=== PATIENT | female | born 1940 | race Hispanic/Latino ===

== ENCOUNTER 2018-11-27 05:35 | Day surgery (SDC) | payer OTHER ==
[~2018-11-27] VITALS: Ht 157.5 cm; Wt 71.7 kg
[~2018-11-27 05:35] MED LIST: CLOP75TA32 PO; LOSA100T58 PO; METO50TA18 PO; PRAV40TA3 PO
[2018-11-27] MEDS ORDERED: SODIUM CHLORIDE 0.9% 1000ML 1,000 ML IV ONE (05:42)
[2018-11-27 06:30] VITALS: BP 173/72
[2018-11-27] MEDS ORDERED: PROPOFOL 10 MG/ML 20ML VIAL IV ONE (08:11)
[2018-11-27 08:33] VITALS: BP 109/47
[2018-11-27 08:38] VITALS: BP 111/47
[2018-11-27 08:43] VITALS: BP 123/55
[2018-11-27 08:48] VITALS: BP 123/51
== END 2018-11-27 09:05 | disposition home or self-care (01) ==
LOC: ENDO 05:35 → DAH 05:35 → ENDO 09:05
PROVIDERS: ATTEND Internal Medicine
DX: K29.50 Unspecified chronic gastritis without bleeding (principal); K57.30 Diverticulosis of large intestine without perforation or abscess without bleeding; B96.81 Helicobacter pylori [H. pylori] as the cause of diseases classified elsewhere; K64.0 First degree hemorrhoids; K22.8 Other specified diseases of esophagus; K31.89 Other diseases of stomach and duodenum; I10 Essential (primary) hypertension; E03.9 Hypothyroidism, unspecified; E78.5 Hyperlipidemia, unspecified; Z98.890 Other specified postprocedural states; Z90.89 Acquired absence of other organs; K62.5 Hemorrhage of anus and rectum; I25.10 Atherosclerotic heart disease of native coronary artery without angina pectoris; I25.2 Old myocardial infarction; E66.9 Obesity, unspecified; Z86.010 Personal history of colon polyps
CPT/HCPCS: 43239; 45378; 88305; A4606; J2704; J7030

== ENCOUNTER → 2019-06-04 | Outpatient (CLI) | payer OTHER ==
[~2019-06-04] VITALS: Ht 160 cm; Wt 71.2 kg
[~2019-06-04] MED LIST changes: +REGADENOSON 0.4 MG/5 ML PF SYG IVP SCH
== END | disposition home or self-care (01) ==
LOC: SHCH 09:00
PROVIDERS: ATTEND Internal Medicine Cardiovascular Disease
DX: R07.9 Chest pain, unspecified (principal)
CPT/HCPCS: 78452; 93017; 96374; A9500 ×2; J2785

== ENCOUNTER → 2019-06-11 | Outpatient (CLI) | payer OTHER ==
[~2019-06-11] MED LIST changes: -REGADENOSON 0.4 MG/5 ML PF SYG IVP SCH
== END | disposition home or self-care (01) ==
LOC: SHCH 11:08
PROVIDERS: ATTEND Internal Medicine Cardiovascular Disease
DX: R94.31 Abnormal electrocardiogram [ECG] [EKG] (principal)
CPT/HCPCS: 93306

== ENCOUNTER → 2019-06-21 | Outpatient (CLI) | payer OTHER | END | disposition home or self-care (01) | LOC: RAH 09:08 | PROVIDERS: ATTEND Internal Medicine | DX: M47.812 Spondylosis without myelopathy or radiculopathy, cervical region (principal); M85.88 Other specified disorders of bone density and structure, other site; M25.511 Pain in right shoulder | CPT/HCPCS: 71100; 72040; 73030 ==

== ENCOUNTER → 2020-05-02 | Outpatient (CLI) | payer SELFPAY | END | disposition home or self-care (01) | LOC: OIH 09:13 | PROVIDERS: ATTEND Internal Medicine | DX: R91.8 Other nonspecific abnormal finding of lung field (principal); R05 Cough; J84.9 Interstitial pulmonary disease, unspecified; M47.815 Spondylosis without myelopathy or radiculopathy, thoracolumbar region | CPT/HCPCS: 71046 ==

== ENCOUNTER → 2021-12-24 | Outpatient (CLI) | payer OTHER ==
[2021-12-24 13:15] LABS: ALBUMIN 3.8 g/dL (3.5-5.0); CREATININE 0.8 mg/dL (0.5-1.5); POTASSIUM 4.6 mmol/L (3.5-5.1); TOTAL PROTEIN, SERUM 7.4 g/dL (6.0-8.3)
== END | disposition home or self-care (01) ==
LOC: LAB 11:28
PROVIDERS: ATTEND Internal Medicine Cardiovascular Disease
DX: I10 Essential (primary) hypertension (principal); E78.5 Hyperlipidemia, unspecified
CPT/HCPCS: 36415; 80053; 80061